=== PATIENT | female | born 1965 | race Caucasian/White ===

== ENCOUNTER 2024-05-19 01:05 | Emergency (ER) | payer OTHER, SELFPAY ==
[2024-05-19] VITALS (9 sets, daily range): BP systolic 109–153; BP diastolic 68–88; PULSE 60–80; RESP 16–18; TEMP 36.3–37.2; O2SAT 93–100; BMI 27.7
--- NOTE | 2024-05-19 | XR_ITS ---
MRI abdomen, without contrast. MRCP Date and time of exam: May 19, 2024 1027 hours INDICATIONS: Epigastric pain beginning today, radiating to the back, gallbladder sonogram May 19, 2024 borderline thickening gallbladder wall, enlarged common bile duct Technique: Multiple axial and coronal images of the abdomen have been obtained with the Siemens 1.5T MRI scanner. Images obtained included T1 weighted transverse images, T2-weighted transverse images, T2-weighted transverse images fat-suppressed, T2 weighted haste fat suppressed transverse images, T1 weighted images, in and out of phase images, T2-weighted coronal images, breath hold, T2 weighted haze coronal images as well as T2 weighted coronal thick slab images, MRCP. Findings: Hepatomegaly 16 cm Gallbladder wall edema and thickened gallbladder wall with multiple gallstones Common bile duct not enlarged, however, coronal image 12 demonstrates 3 mm stone in the distal common bile duct Pancreatic duct is not dilated No pancreatic mass Spleen not enlarged No hydronephrosis IMPRESSION: Acute calculus cholecystitis 3 mm stone in the common bile duct, consider ERCP follow-up
--- NOTE | 2024-05-19 01:33 | XR_ITS ---
Examination: CT abdomen and pelvis without contrast. Coronal 3-D reconstructions. Sagittal 2-D reconstructions. Date and time of exam:May 19, 2024 at 0140 hrs. Comparison June 04, 2023 Indications: Onset left-sided abdominal pain today CTDI: vol (mGy): 9.68 DLP: (mGycm): 480 Technique: Axial images of the abdomen have been obtained, 3 mm slice thickness Intravenous contrast material has not been administered. Low dose protocols were performed. One or more of the following dose reduction techniques were used; automated exposure control, adjustment of the mA and/or KV according to patient size, use of iterative reconstruction technique. Findings: No focal liver lesions Cholelithiasis, gallbladder wall thickening Common bile duct is enlarged at least 11 mm Diffuse edema surrounding the pancreas Mild renal parenchymal scar formation, no hydronephrosis or ureteral calculi Aorta normal size Normal appendix No bowel obstruction No diverticulitis No pelvic mass Urinary bladder intact Moderate osteopenia Impression: Cholelithiasis, suspicious for acute cholecystitis Significant extrahepatic biliary tract dilatation, recommend MRCP follow-up to exclude common bile duct stones and/or stricture Acute pancreatitis
[2024-05-19] MEDS: KETOROLAC INJ 60 MG/2 ML VIAL 30 MG IM (01:47)
[2024-05-19] MEDS: ONDANSETRON ODT 4 MG TABRAP PO (01:47)
[2024-05-19 02:24] LABS: Basophils % (Auto) 0 % (0-2.5); Eosinophils # (Auto) 0.1 Thou/mm3 (0.0-0.5); Eosinophils % (Auto) 1 % (0-10); Hematocrit 42.5 % (36.0-46.0); Immature Granulocytes % (Auto) 0 % (0-0); Immature Granulocytes Auto 0.03 Thou/mm3 (0.00-0.00); Lymphocytes # (Auto) 1.2 Thou/mm3 (1.0-4.8); Lymphocytes % (Auto) 13 % (10-50); Mean Corpuscular HGB Conc 32.9 g/dl (31.0-37.0); Mean Corpuscular Hemoglobin 30.2 pg (25.0-35.0); Mean Corpuscular Volume 92 fL (80-100); Monocytes # (Auto) 0.6 Thou/mm3 (0.0-0.8); Monocytes % (Auto) 7 % (0-12); Neutrophils # (Auto) 7.4 Thou/mm3 (1.8-7.7); Neutrophils % (Auto) 79 % (37-80); Nucleated Red Blood Cell % 0 /100 WBC (0); Platelet Count 338 Thou/mm3 (140-440); RDW Standard Deviation 45.9 fL (36.4-46.3); Red Blood Count 4.63 Miln/mm3 (4.00-5.20); White Blood Count 9.4 Thou/mm3 (3.6-11.0)
[2024-05-19 02:39] LABS: Collection Type, Urine Clean Catch
[2024-05-19 02:46] LABS: Alanine Aminotransferase 194 U/L (10-49); Albumin, Serum 4.6 gm/dL (3.4-4.8); Albumin/Globulin Ratio 1.7 (1.2-2.2); Alkaline Phosphatase 117 U/L (46-116); Anion Gap 9 (7-16); Aspartate Amino Transferase 345 U/L (0-34); BUN/Creatinine Ratio 11 Ratio (12-20); Blood Urea Nitrogen 11 mg/dL (9-23); Calcium 9.9 mg/dL (8.3-10.6); Calcium (Corrected) 9.9 mg/dL (8.5-10.1); Carbon Dioxide 30.5 mMol/L (20.0-31.0); Chloride 101 mMol/L (98-107); Estimated Creatinine Clearance 63.1 mL/min (>60); Globulin 2.7 gm/dL (2.3-3.5); Glucose 179 mg/dL (74-106); Lipase 1337 U/L (12-53); Osmolality,Calculated 282 (275-295); Potassium 4.7 mMol/L (3.4-5.1); Sodium 140 mMol/L (136-145); Total Protein 7.3 gm/dL (5.7-8.2); eGFR > 60 See Note
--- NOTE | 2024-05-19 02:48 | PRELIM_ITS ---
CT abdomen and pelvis without intravenous contrast (axial sections with sagittal and coronal reformat s) May 19, 2024 0140 hours Clinical History: Abdominal pain with nausea, history of ileus. Anupam rison: NoneFindings:The head, uncinate process, body and tail of the pancreas is edematous with mild peripancreatic fat stranding. There is no peripancreatic fluid.There is periportal edema. Distended g allbladder with gallstones with mild wall thickening; possibility of cholecystitis cannot be excluded . There is dilated common bile duct, measuring 1 cm with possible sludge/calculi. The spleen, left ki dney and adrenals are unremarkable on this noncontrast study. There is right renal hypodensity, which is too small to characterize.No evidence of bowel obstruction. A moderate amount of fecal material i s present in the colon. The appendix is within normal limits (axial images 135-147/236). There is no mesenteric or retroperitoneal adenopathy.The urinary bladder is unremarkable. The uterus and adnexa a re unremarkable. There is no free air. Degenerative changes are identified in the spine. The lung bas es are clear. Please note that evaluation of soft tissue/vascular structures and bowel loops is limit ed due to absence of IV and oral contrast. Impression:1. Findings consistent with acute pancreatitis. No peripancreatic fluid collection. 2. Distended gallbladder with gallstones with mild wall thickeni ng; possibility of cholecystitis cannot be excluded. Recommend further evaluation with sonography, if clinically indicated. 3. Dilated common bile duct and intrahepatic bile duct, consistent with distal common bile duct obstruction. Possible sludge/calculi in the common bile duct. 4. Other findings as described above. Suggest clinical correlation and follow up accordingly. Report Electronically Consuelo d By: Kurtis Burr 05/19/2024 2:47:18 AM [EST]
--- NOTE | 2024-05-19 03:19 | XR_ITS ---
Examination: Abdomen sonogram, Limited Date and time of exam: May 19, 2024 0443 hrs. Indications: Onset epigastric pain today Technique: Real-time alonzo scale transabdominal sonographic images of the upper abdomen obtained. Findings: Numerous gallstones Gallbladder wall 0.39 cm no edema Common bile duct 0.6 cm no definite stones Pancreatic head 3.4 cm Liver 13.4 cm smooth contour no focal liver lesions fatty infiltration Normal hepatopedal portal venous flow Patent IVC Impression: Cholelithiasis Borderline thickening gallbladder wall and mild enlargement common bile duct although no common bile duct stones As clinically warranted consider HIDA scan or MRCP follow-up
--- NOTE | 2024-05-19 03:21 | EDNOTE_ITS ---
ED Abdominal Pain RME/HPI General Chief Complaint: Abdominal Pain Stated complaint: ABD PAIN, NAUSEA, CONSTIPATION Time seen by provider: 05/19/24 01:25 Arrival date/time: 05/19/24 01:05 Limitations: no limitations RME / HPI RME / HPI narrative: Dr. Mondragon's Main ED Evaluation: 65-year-old female with below history presenting to the emergency department with epigastric pain that started 1 day ago that was intermittent initially with radiation to her back. The patient states she ate dinner about 530 and it made her pain worse and increased in intensity. Patient is dry heaving for the rest of the evening. No fevers. No vomiting. Patient has no previous history of gallstone or history of pancreatitis. PMH: History of breast cancer status postsurgery. History of gout. October 2023- sepsis secondary to UTI PSX: Breast cancer resection and breast reconstruction Social hx: Alcohol: Socially Tobacco: Denied Illicit drugs: Sometimes she use edibles marijuana Allergies: Sulfa Location: epigastric Severity: mild Severity scale (1-10): 2 Quality: sharp Radiation: back Relieving factors: nothing Exacerbating factors: eating Associated symptoms: nausea Related Data Home Medications ?Medication ?Instructions ?Recorded ?Confirmed alprazolam 0.5 mg tablet (Xanax) 0.5 mg PO BID PRN ANXIETY #0 tabs 09/06/13 10/16/23 venlafaxine 75 mg capsule,extended 225 mg PO QDAY ##0 09/06/13 10/16/23 release 24 hr (Effexor XR) dicyclomine 20 mg tablet 20 mg PO BID PRN Pain (Scale Score 10/16/23 10/16/23 4-6) levothyroxine 25 mcg tablet 25 mcg PO QDAY 10/16/23 10/16/23 Allergies Allergy/AdvReac Type Severity Reaction Status Date / Time SULFA Allergy Unknown Uncoded 10/16/23 04:36 Review of Systems Review of Systems Systems Reviewed: All systems reviewed, normal except as documented Past Medical History Past Medical History CARDIAC: Negative Cardiac Disorders or Congestive Heart Failure RESPIRATORY: Negative Chronic Obstructive Pulmonary Disease (COPD) or Asthma GENITOURINARY: Negative Renal Disease ENDOCRINE: Negative Diabetes Mellitus Type 1 or Diabetes Mellitus Type 2 HEMATOLOGIC: Negative Sickle Cell Disease Family History FAMILY HISTORY: Negative Family Cardiac Disorders Social History SMOKING STATUS: Never smoker ED Exam Narrative Physical exam: Not diaphoretic General Limitations: Present no limitations General appearance: Present alert and in no apparent distress Head Head exam: Present atraumatic Eye Eye exam: Present normal appearance and EOMI; Absent scleral icterus or conjunctival injection ENT ENT exam: Present normal exam, normal oropharynx and mucous membranes moist Neck Neck exam: Present normal inspection, full ROM and trachea midline Chest Chest inspection: Present normal inspection and symmetric chest wall rise Respiratory Respiratory exam: Present normal lung sounds bilaterally Cardiovascular Cardiovascular exam: Present regular rate, normal rhythm and normal heart sounds Abdominal Exam Abdominal exam: Present soft, tenderness and diminished bowel sounds; Absent rebound, rigidity or Thomason's sign Abdominal tenderness: Present epigastrium and mild Extremities Exam Extremities exam: Present normal inspection and full ROM Back Exam Back exam: Present normal inspection and full ROM Neurological Exam Neurological exam: Present alert, oriented X3 and CN II-XII intact (grossly intact); Absent motor sensory deficit Psychiatric Psychiatric exam: Present normal affect and normal mood Skin Skin exam: Present warm, dry, intact and normal color Course Course Course Narrative: 0330:US ordered. Quality Measures none Orders Category Date Time Status CT abdomen pelvis wo con Stat Exams 05/19/24 01:33 Taken US gall bladder Stat Exams 05/19/24 03:19 Ordered CBC Stat Lab 05/19/24 01:52 Completed CMP [Comprehensive Metabolic Panel] Stat Lab 05/19/24 01:52 Completed Lipase Stat Lab 05/19/24 01:52 Completed Urinalysis, C/S if Indicated Stat Lab 05/19/24 02:09 Completed Ketorolac Inj [Toradol Inj] Med 05/19/24 01:33 Discontinued 30 mg IM X1 ONE Ondansetron Odt [Zofran Odt] Med 05/19/24 01:33 Discontinued 4 mg PO X1 ONE Reevaluation(s) Reevaluation #1: Pain 2/10 after Morphine IV. Time: 03:30 Vital Signs Vital signs: Vital Signs Temperature 98.7 F 05/19/24 01:37 Pulse Rate 60 05/19/24 01:37 Respiratory Rate 18 05/19/24 01:37 Blood Pressure 153/88 H 05/19/24 01:37 Pulse Oximetry (%) 100 05/19/24 01:37 Oxygen Delivery Method Room Air 05/19/24 01:37 Abdominal Pain MDM MDM Narrative MDM Narrative:: Differential diagnosis includes gallstone pancreatitis, pancreatitis, cholangitis, worsening of her underlying cancer, sepsis Patient data External records reviewed:: [facility] previous records (Per chart review, patient was admitted here on 10/16/23 for acute hypotension.) Clinical information provided by:: patient Social determinants that could affect healthcare access:: none Patient has the following chronic illnesses:: none How is presenting disease/condition affected by chronic disease/condition?: no chronic disease Evaluation data The following diagnostics were reviewed and interpreted by me:: lab results and radiology exam(s) Lab and/or radiology exams considered but not ordered:: none Interpretation Summary: CBC is normal, Glucose is 179, Total Bilirubin is elevated at 2.0, LFTs are elevated, Lipase is elevated at 1337, according to my interpretation, ----- Telerad Preliminary Report Draft Patient: KAMRYN BIGGS Record#: [id number] Birthdate: 1965 Age/Sex: 59 / F [facility] Att[facility]: Ordering Physician: Date of Service: Procedure(s): Accession Number(s): cc: ~ CT abdomen and pelvis without intravenous contrast (axial sections with sagittal and coronal reformats) May 19, 2024 0140 hours Clinical History: Abdominal pain with nausea, history of ileus. Comparison: None Findings: The head, uncinate process, body and tail of the pancreas is edematous with mild peripancreatic fat stranding. There is no peripancreatic fluid. There is periportal edema. Distended gallbladder with gallstones with mild wall thickening; possibility of cholecystitis cannot be excluded. There is dilated common bile duct, measuring 1 cm with possible sludge/calculi. The spleen, left kidney and adrenals are unremarkable on this noncontrast study. There is right renal hypodensity, which is too small to characterize. No evidence of bowel obstruction. A moderate amount of fecal material is present in the colon. The appendix is within normal limits (axial images 135-147/236). There is no mesenteric or retroperitoneal adenopathy. The urinary bladder is unremarkable. The uterus and adnexa are unremarkable. There is no free air. Degenerative changes are identified in the spine. The lung bases are clear. Please note that evaluation of soft tissue/vascular structures and bowel loops is limited due to absence of IV and oral contrast. Impression: 1. Findings consistent with acute pancreatitis. No peripancreatic fluid collection. 2. Distended gallbladder with gallstones with mild wall thickening; possibility of cholecystitis cannot be excluded. Recommend further evaluation with sonography, if clinically indicated. 3. Dilated common bile duct and intrahepatic bile duct, consistent with distal common bile duct obstruction. Possible sludge/calculi in the common bile duct. 4. Other findings as described above. Suggest clinical correlation and follow up accordingly. Report Electronically Signed By: Kurtis Burr 05/19/2024 2:47:18 AM [EST] Medications / Prescriptions Medications or Prescriptions considered but not ordered:: none Medication administrations:: Medication Administration History Discontinued Medications Ketorolac Tromethamine (Ketorolac Inj 60 Mg/2 Ml Vial) 30 mg IM X1 ONE Stop: 05/19/24 01:34 Last Admin: 05/19/24 01:47 Dose: 30 mg Documented By: EMERALD Ondansetron HCl (Ondansetron Odt 4 Mg Tabrap) 4 mg PO X1 ONE; Protocol Stop: 05/19/24 01:34 Last Admin: 05/19/24 01:47 Dose: 4 mg Documented By: EMERALD see above Consultations Consultation(s) initiated? (list below): No Diagnosis Differential diagnosis abdominal pain: diverticulitis, pancreatitis and other (cholelithiasis, cholecystitis) Most likely diagnosis given after review of the tests above:: see below Admission Indicated Admission indicated?: not indicated Explain why admission is indicated or not indicated:: Patient is pending US gallbladder at sign out. Admission Request Was there a request for admission?: No Disposition Plan Disposition Plan: other (specify) (Signed out to Dr. Banerjee at 0600 pending US gallbladder.) Discharge Plan Plan Disposition Comment: Stable at signout Prescriptions/Referrals Prescriptions/Med Rec: No Action venlafaxine [Effexor XR] 75 MG capsule,extended release 24hr 225 mg PO QDAY Qty: 0 alprazolam [Xanax] 0.5 MG tablet 0.5 mg PO BID PRN (Reason: ANXIETY) Qty: 0 levothyroxine 25 mcg tablet 25 mcg PO QDAY dicyclomine 20 mg tablet 20 mg PO BID PRN (Reason: Pain (Scale Score 4-6)) Patient Comments: take 1 tablet by mouth three times a day if needed abdominal pain Problem List Clinical Impression: Acute gallstone pancreatitis, Common bile duct dilation Patient/Caregiver Discharge Instructions Print Language: Dutch
[2024-05-19 03:27] LABS: Amorphous Crystals,Urine Present (Absent); Bilirubin,Urine Negative (Negative); Blood,Urine Negative (Negative); Budding Yeast,Urine Present; Color,Urine Yellow (Lt Yel-Yel); Culture Indicated,Urine Not Indicated; Glucose, Urine Negative (Negative); Ketones,Urine Negative (Negative); Leukocyte Esterase,Urine Negative (Negative); Nitrite,Urine Negative (Negative); PH,Urine 7.5 (5.0-7.0); Protein,Urine Negative (Neg - Trace); RBC,Urine 5 /hpf (0-3); Squamous Epithelial Cell,Urine < 1 /hpf (0-5); Urobilinogen,Urine Negative mg/dL (0.0-1.0); WBC,Urine 1 /hpf (0-5)
[2024-05-19 03:29] LABS: Clarity,Urine Hazy (Clear/Hazy)
--- NOTE | 2024-05-19 06:11 | PRELIM_ITS ---
Ultrasound Abdomen. May 19, 2024 at 0444 hours Clinical history: Gallstone pancreatitis r/o commo n bile duct stone. Technique: Grayscale and color flow images of the abdomen are provided. Hepatic an d portal veins were also imaged with color flow images. Comparison: Compared with the prior study corby ed May 19, 2024 01:40 AM Findings:The liver is heterogeneous in echogenicity with smooth contour. Hepatopetal flow in main portal vein. No intrahepatic biliary ductal dilatation. Multiple calculi in distended gallbladder. Gallbladder wall thickening. The common bile duct measuring 0.6 cm and appear s to be void of stones. No free fluid is demonstrated on the submitted images. The pancreas is hetero geneous in echogenicity. The inferior vena cava to the extent visualized is within normal limits.Impr ession:Findings suggestive of cholelithiasis with acute cholecystitis. Recommend clinical correlation . No definite evidence of choledocholithiasis. Report Electronically Signed By: Maxi Lowery 05/19/2024 6:10:49 AM [EST]
--- NOTE | 2024-05-19 12:28 | PC.CM ---
Addendum entered by Brandon Cordoba RN 05/19/24 16:57: 1657 called Yolanda at [facility] and informed roller picker time is 1900. Addendum entered by Brandon Cordoba RN 05/19/24 16:48: 1648 sent paperwork to [facility] through [facility]. Called [facility], spoke to Michelle and set up the transport. The roller picker time is 1900. Addendum entered by Brandon Cordoba RN 05/19/24 16:36: 1630 transfer packet is complete with CD inside including all signatures. Transfer packet given to bedside nurse and notified number to call for report is on tracker. Addendum entered by Brandon Cordoba RN 05/19/24 15:55: 1546 received call from Flory at [facility], she wants to speak with Dr. Banerjee. Conference call connected. Flory stated pt is accepted for ED to ED transfer. Accepted by [facility]. Call report at [phone]. Addendum entered by Brandon Cordoba RN 05/19/24 15:00: 1500 clinicals sent to [facility]. Addendum entered by Brandon Cordoba RN 05/19/24 13:28: 1256 received call from [facility], spoke to Demetria. She stated transfer is denied due to capacity. Addendum entered by Brandon Cordoba RN 05/19/24 12:49: 1249 called [facility] to initiate the transfer. Left VM. Original Note: 1228 clinicals sent to [facility]. [address] Banerjee, pt needs to be transferred for stones in CBD needs ERCP/GI services.
--- NOTE | 2024-05-19 12:58 | EDNOTE_ITS ---
Emergency Room Addendum <Columba Hollis - Last Filed: 05/19/24 14:10> Addendum Narrative: 0600: Care assumed from Dr. Mondragon, the previous shift emergency physician. Past medical, surgical, social and family history reviewed. Vitals and home medications reviewed. I will assume the care of the patient at this time, pending US gallbladder. Please refer to the emergency department record for history and examination from initial visit.? Nursing notes reviewed by me. Vital signs reviewed by me. [place] medical records reviewed by me. 1217: Transfer nurse made aware of MRCP results and need to transfer for ERCP. RADIOLOGY Ordering Physician: Gina Mondragon MD Date of Service: 05/19/24 Procedure(s): US gall bladder Accession Number(s): [id number] cc: Kurt Givens MD; Gina Mondragon MD; Rachael Saunders MD~ Examination: Abdomen sonogram, Limited Date and time of exam: May 19, 2024 0443 hrs. Indications: Onset epigastric pain today Technique: Real-time alonzo scale transabdominal sonographic images of the upper abdomen obtained. Findings: Numerous gallstones Gallbladder wall 0.39 cm no edema Common bile duct 0.6 cm no definite stones Pancreatic head 3.4 cm Liver 13.4 cm smooth contour no focal liver lesions fatty infiltration Normal hepatopedal portal venous flow Patent IVC Impression: Cholelithiasis Borderline thickening gallbladder wall and mild enlargement common bile duct although no common bile duct stones As clinically warranted consider HIDA scan or MRCP follow-up Dictated By: Kurt Givens MD Signed By: <Electronically signed by Kurt Givens MD in OV>05/19/24 0719 Ordering Physician: Gina Mondragon MD Date of Service: 05/19/24 Procedure(s): MR MRCP Accession Number(s): [id number] cc: Kurt Givens MD; Gina Mondragon MD; Rachael Saunders MD~ MRI abdomen, without contrast. MRCP Date and time of exam: May 19, 2024 1027 hours INDICATIONS: Epigastric pain beginning today, radiating to the back, gallbladder sonogram May 19, 2024 borderline thickening gallbladder wall, enlarged common bile duct Technique: Multiple axial and coronal images of the abdomen have been obtained with the Siemens 1.5T MRI scanner. Images obtained included T1 weighted transverse images, T2-weighted transverse images, T2-weighted transverse images fat-suppressed, T2 weighted haste fat suppressed transverse images, T1 weighted images, in and out of phase images, T2-weighted coronal images, breath hold, T2 weighted haze coronal images as well as T2 weighted coronal thick slab images, MRCP. Findings: Hepatomegaly 16 cm Gallbladder wall edema and thickened gallbladder wall with multiple gallstones Common bile duct not enlarged, however, coronal image 12 demonstrates 3 mm stone in the distal common bile duct Pancreatic duct is not dilated No pancreatic mass Spleen not enlarged No hydronephrosis IMPRESSION: Acute calculus cholecystitis 3 mm stone in the common bile duct, consider ERCP follow-up Dictated By: Kurt Givens MD Signed By: <Electronically signed by Kurt Givens MD in OV>05/19/24 1127 <Beatrice Madison - Last Filed: 05/19/24 21:57> Addendum Narrative: 0600: Care assumed from Dr. Mondragon, the previous shift emergency physician. Past medical, surgical, social and family history reviewed. Vitals and home medications reviewed. I will assume the care of the patient at this time, pending US gallbladder. Please refer to the emergency department record for history and examination from initial visit.? Nursing notes reviewed by me. Vital signs reviewed by me. [facility] medical records reviewed by me. 1217: Transfer nurse made aware of MRCP results and need to transfer for ERCP. 1700: Patient accepted to [facility], ED to ED transfer. Accepted by And[facility]. Diagnoses: acute gallstone pancreatitis, common bile duct dilation RADIOLOGY Ordering Physician: Gina Mondragon MD Date of Service: 05/19/24 Procedure(s): US gall bladder Accession Number(s): [id number] cc: Kurt Givens MD; Gina Mondragon MD; Rachael Saunders MD~ Examination: Abdomen sonogram, Limited Date and time of exam: May 19, 2024 0443 hrs. Indications: Onset epigastric pain today Technique: Real-time alonzo scale transabdominal sonographic images of the upper abdomen obtained. Findings: Numerous gallstones Gallbladder wall 0.39 cm no edema Common bile duct 0.6 cm no definite stones Pancreatic head 3.4 cm Liver 13.4 cm smooth contour no focal liver lesions fatty infiltration Normal hepatopedal portal venous flow Patent IVC Impression: Cholelithiasis Borderline thickening gallbladder wall and mild enlargement common bile duct although no common bile duct stones As clinically warranted consider HIDA scan or MRCP follow-up Dictated By: Kurt Givens MD Signed By: <Electronically signed by Kurt Givens MD in OV>05/19/24 0719 Ordering Physician: Gina Mondragon MD Date of Service: 05/19/24 Procedure(s): MR MRCP Accession Number(s): [id number] cc: Kurt Givens MD; Gina Mondragon MD; Rachael Saunders MD~ MRI abdomen, without contrast. MRCP Date and time of exam: May 19, 2024 1027 hours INDICATIONS: Epigastric pain beginning today, radiating to the back, gallbladder sonogram May 19, 2024 borderline thickening gallbladder wall, enlarged common bile duct Technique: Multiple axial and coronal images of the abdomen have been obtained with the Siemens 1.5T MRI scanner. Images obtained included T1 weighted transverse images, T2-weighted transverse images, T2-weighted transverse images fat-suppressed, T2 weighted haste fat suppressed transverse images, T1 weighted images, in and out of phase images, T2-weighted coronal images, breath hold, T2 weighted haze coronal images as well as T2 weighted coronal thick slab images, MRCP. Findings: Hepatomegaly 16 cm Gallbladder wall edema and thickened gallbladder wall with multiple gallstones Common bile duct not enlarged, however, coronal image 12 demonstrates 3 mm stone in the distal common bile duct Pancreatic duct is not dilated No pancreatic mass Spleen not enlarged No hydronephrosis
--- NOTE | 2024-05-19 18:27 | PC.NURSE ---
PT HAVING LITTLE TO NO PAIN- AWAITING TRANSPORT TO [facility]. NO COMPLAINTS AT THIS TIME.
== END 2024-05-19 19:15 | disposition short-term general hospital (02) ==
LOC: SERX 04:35
PROVIDERS: Emergency Provider Emergency Medicine; PCP Family Medicine
DX: K85.10 Biliary acute pancreatitis without necrosis or infection (principal); K80.70 Calculus of gallbladder and bile duct without cholecystitis without obstruction; Z75.1 Person awaiting admission to adequate facility elsewhere
CPT/HCPCS: 36415; 74176; 76705; 80053; 81001; 83690; 85025; 96372; 99284; J1885; Q0162; S8037; 74181

== ENCOUNTER → 2024-05-25 | Outpatient (CLI) | payer OTHER, SELFPAY ==
[2024-05-25 17:37] LABS: Basophils % (Auto) 1 % (0-2.5); Eosinophils # (Auto) 0.3 Thou/mm3 (0.0-0.5); Eosinophils % (Auto) 5 % (0-10); Hematocrit 44.1 % (36.0-46.0); Hemoglobin 14.1 g/dL (12.0-16.0); Immature Granulocytes % (Auto) 0 % (0-0); Immature Granulocytes Auto 0.01 Thou/mm3 (0.00-0.00); Lymphocytes # (Auto) 2.2 Thou/mm3 (1.0-4.8); Lymphocytes % (Auto) 36 % (10-50); Mean Corpuscular Hemoglobin 30.2 pg (25.0-35.0); Mean Corpuscular Volume 94 fL (80-100); Monocytes # (Auto) 0.5 Thou/mm3 (0.0-0.8); Monocytes % (Auto) 8 % (0-12); Neutrophils # (Auto) 3.1 Thou/mm3 (1.8-7.7); Neutrophils % (Auto) 51 % (37-80); Nucleated Red Blood Cell % 0 /100 WBC (0); Platelet Count 426 Thou/mm3 (140-440); RDW Standard Deviation 46.1 fL (36.4-46.3); Red Blood Count 4.67 Miln/mm3 (4.00-5.20); White Blood Count 6.1 Thou/mm3 (3.6-11.0)
[2024-05-25 17:53] LABS: Alanine Aminotransferase 58 U/L (10-49); Albumin, Serum 4.5 gm/dL (3.4-4.8); Anion Gap 7 (7-16); Aspartate Amino Transferase 17 U/L (0-34); BUN/Creatinine Ratio 12 Ratio (12-20); Bilirubin,Total 0.5 mg/dL (0.3-1.2); Blood Urea Nitrogen 12 mg/dL (9-23); Calcium 9.9 mg/dL (8.3-10.6); Carbon Dioxide 32.7 mMol/L (20.0-31.0); Chloride 103 mMol/L (98-107); Glucose 101 mg/dL (74-106); Osmolality,Calculated 284 (275-295); Sodium 143 mMol/L (136-145); Total Protein 7.3 gm/dL (5.7-8.2); eGFR > 60 See Note
[2024-05-25 17:54] LABS: Albumin/Globulin Ratio 1.6 (1.2-2.2); Alkaline Phosphatase 108 U/L (46-116); Calcium (Corrected) 9.9 mg/dL (8.5-10.1); Globulin 2.8 gm/dL (2.3-3.5); Lipase 96 U/L (12-53)
== END | disposition home or self-care (01) ==
LOC: COPL 16:48
PROVIDERS: PCP Family Medicine; Referring Provider Family Medicine; Visit Provider Family Medicine
DX: K85.80 Other acute pancreatitis without necrosis or infection (principal); K81.0 Acute cholecystitis; R11.0 Nausea
CPT/HCPCS: 36415; 80053; 83690; 85025

== ENCOUNTER 2024-06-15 11:05 | Day surgery (SDC) | payer OTHER, SELFPAY ==
--- NOTE | 2024-06-14 07:00 | EKG_ITS ---
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
[2024-06-14 08:51] VITALS: BMI 27.4
[2024-06-14 10:53] LABS: Basophils # (Auto) 0.1 Thou/mm3 (0.0-0.2); Basophils % (Auto) 1 % (0-2.5); Eosinophils # (Auto) 0.2 Thou/mm3 (0.0-0.5); Eosinophils % (Auto) 3 % (0-10); Hematocrit 38.7 % (36.0-46.0); Hemoglobin 12.5 g/dL (12.0-16.0); Immature Granulocytes % (Auto) 0 % (0-0); Immature Granulocytes Auto 0.01 Thou/mm3 (0.00-0.00); Lymphocytes # (Auto) 1.9 Thou/mm3 (1.0-4.8); Lymphocytes % (Auto) 32 % (10-50); Mean Corpuscular HGB Conc 32.3 g/dl (31.0-37.0); Mean Corpuscular Hemoglobin 30.7 pg (25.0-35.0); Mean Corpuscular Volume 95 fL (80-100); Monocytes # (Auto) 0.6 Thou/mm3 (0.0-0.8); Monocytes % (Auto) 9 % (0-12); Neutrophils # (Auto) 3.3 Thou/mm3 (1.8-7.7); Neutrophils % (Auto) 55 % (37-80); Nucleated Red Blood Cell % 0 /100 WBC (0); Platelet Count 360 Thou/mm3 (140-440); RDW Standard Deviation 46.8 fL (36.4-46.3); Red Blood Count 4.07 Miln/mm3 (4.00-5.20); White Blood Count 6.1 Thou/mm3 (3.6-11.0)
[2024-06-14 11:02] LABS: Alanine Aminotransferase 15 U/L (10-49); Albumin, Serum 4.4 gm/dL (3.4-4.8); Albumin/Globulin Ratio 1.7 (1.2-2.2); Alkaline Phosphatase 72 U/L (46-116); Anion Gap 7 (7-16); Aspartate Amino Transferase 19 U/L (0-34); BUN/Creatinine Ratio 16 Ratio (12-20); Bilirubin,Total 0.5 mg/dL (0.3-1.2); Blood Urea Nitrogen 16 mg/dL (9-23); Calcium 9.7 mg/dL (8.3-10.6); Calcium (Corrected) 9.7 mg/dL (8.5-10.1); Carbon Dioxide 30.3 mMol/L (20.0-31.0); Chloride 110 mMol/L (98-107); Estimated Creatinine Clearance 62.7 mL/min (>60); Globulin 2.6 gm/dL (2.3-3.5); Glucose 105 mg/dL (74-106); Osmolality,Calculated 293 (275-295); Sodium 147 mMol/L (136-145); eGFR > 60 See Note
[2024-06-15] VITALS (12 sets, daily range): BP systolic 122–179; BP diastolic 81–109; PULSE 64–71; RESP 12–20; TEMP 36.4–36.5; O2SAT 95–99; BMI 26.9
[2024-06-15] MEDS: RINGERS LACTATED 1000 ML 1,000 ML 20 ML IV (11:52)
--- NOTE | 2024-06-15 13:07 | ESOP_ITS ---
Date of Procedure 06/15/24 Pre Op Diagnosis Symptomatic cholelithiasis Post Op Diagnosis Cholelithiasis with cholecystitis Procedure Laparoscopic cholecystectomy Findings Moderately distended gallbladder with gallstones and chronic cholecystitis Procedure Description Patient was brought into the operating room in supine position. After adm inistration of general endotracheal anesthesia abdomen was prepped and draped in standard surgical manner. A Veress needle was inserted through the umbilicus and pneumoperitoneum was obtained up to 15 mmHg. The Veress needle was then removed, a 5 mm infraumbilical incision was made and the 5mm trocar was inserted. Laparoscopic camera was placed. Under direct visualization a laparoscopic camera a 10 mm trocar was placed in subxiphoid and two 5 mm trocars placed in right upper quadrant. The gallbladder was identified and was noted to be moderately distended with gallstones and chronic cholecystitis. It was retracted cephalad and laterally. Dissection started near the infundibulum of gallbladder where cystic duct and gallbladder junction clearly identified. The cystic duct was circumferentially dissected off the peritoneum and surrounding inflammatory tissue. The critical view of safety was clearly demonstrated. Cystic duct was then divided between 2 endoclips proximally and one distally. The cystic artery was similarly dissected and divided. The gallbladder was then from the liver bed using electrocautery. The gallbladder was then placed inside an Endo Catch and removed from the abdomen utilizing subxiphoid trocar site. The area was copiously and thoroughly washed and irrigated, all the fluid was suctioned and the suction fluid returned clear. Hemostasis achieved using electrocautery, also topical hemostatic agent using snow Surgicel placed at the gallbladder fossa to further assure hemostasis. Endoclips noted be in place and intact without any bleeding or any leakage. Hemostasis was adequate and satisfactory. The subxiphoid trocar sites fascial defect was closed with 0 Vicryl. Instruments and trocars removed, pneumoperitoneum was evacuated and the incisions closed with 4-0 Monocryl in subcuticular fashion. Instrument needle and sponge counts were all reported to be correct X2. Patient tolerated the procedure well, was extubated, breathing spontaneously and without difficulty and was transferred to postanesthesia care in stable condition. Anesthesia GETA and local Pathology / specimen Other (Gallbladder and contents) Estimated Blood Loss 25 Condition Stable Disposition PACU Surgeon Alpa Valladares MD Surgical Staff Operation Date: 06/15/24 14:45 Case Staff Anesthesiologist: Sourav Lloyd RN First Assistant: Ameena Cho
--- NOTE | 2024-06-15 13:10 | SUR.PHASEI ---
pt arrived via gurney with oral airway present, breathing unlabored, dressing to abdomen clean, dry, and intact, report from Carlos DOWNEY and Dr Lloyd
[2024-06-15] MEDS: hydrALAZINE INJ 20 MG/ML VIAL 10 MG IV (14:07)
--- NOTE | 2024-06-15 14:40 | SUR.PHASEII ---
pt awake, alert, able to follow commands, breathing unlabored, dressing to abdomen clean, dry, and intact, discharge instructions given with spouse present, pt discharged via wheelchair with all belongings and copies of discharge paperwork.
== END 2024-06-15 14:40 | disposition home or self-care (01) ==
PROVIDERS: PCP Family Medicine; Referring Provider Surgery; Visit Provider Surgery
PROC: 0FT44ZZ Resection of Gallbladder, Percutaneous Endoscopic Approach (ICD-10-PCS; CPT 47562; principal; 2024-06-15 14:30)
DX: K80.10 Calculus of gallbladder with chronic cholecystitis without obstruction (principal); Z01.810 Encounter for preprocedural cardiovascular examination
CPT/HCPCS: 47562; 36415; 80053; 85025; 93005; A4217; A4649; J0360; J0694; J1100; J2250; J2405; J2704; J3010; J3490; J7120

== ENCOUNTER → 2024-07-01 | Outpatient (CLI) | payer OTHER, SELFPAY ==
[2024-07-01 17:41] LABS: Glucose Estimated Average 111 mg/dL (80-131); Hemoglobin A1C 5.5 % Hgb (4.8-6.0)
== END | disposition home or self-care (01) ==
LOC: COPL 16:41
PROVIDERS: PCP Family Medicine; Referring Provider Family Medicine; Visit Provider Family Medicine
DX: E11.65 Type 2 diabetes mellitus with hyperglycemia (principal)
CPT/HCPCS: 36415; 83036

== ENCOUNTER → 2024-10-01 | Outpatient (CLI) | payer OTHER, SELFPAY ==
[2024-10-01 20:17] LABS: Glucose Estimated Average 100 mg/dL (80-131); Hemoglobin A1C 5.1 % Hgb (4.8-6.0)
== END | disposition home or self-care (01) ==
LOC: COPL 15:40
PROVIDERS: PCP Family Medicine; Referring Provider Family Medicine; Visit Provider Family Medicine
DX: E11.65 Type 2 diabetes mellitus with hyperglycemia (principal); Z12.31 Encounter for screening mammogram for malignant neoplasm of breast
CPT/HCPCS: 36415; 83036

== ENCOUNTER → 2025-02-16 | Outpatient (CLI) | payer OTHER, SELFPAY ==
--- NOTE | 2025-02-16 09:15 | XR_ITS ---
Examination: Screening digital mammography, unilateral left Computer aided detection 3-D breast Tomosynthesis, unilateral Date and time of exam: 02/16/2025, 9:09 a.m. Comparisons: June 2017 through November 2021 Indications: Screening Technique: Nonmagnified MLO, CC views of the left breast to been obtained, reconstructed from 3-D Tomosynthesis images. R2 computer aided detection program utilized for evaluation of suspicious masses and/or abnormal calcifications. 3-D Tomosynthesis images obtained. Findings: There are scattered areas of fibroglandular density. No evidence of abnormal masses or suspicious calcifications. Impression: BI-RADS category 1: Negative findings (within normal) Recommend 1 year follow-up mammogram
== END | disposition home or self-care (01) ==
LOC: CDIM 09:02
PROVIDERS: Referring Provider Family Medicine; Visit Provider Family Medicine
DX: Z12.31 Encounter for screening mammogram for malignant neoplasm of breast (principal); R92.313 Mammographic fatty tissue density, bilateral breasts
CPT/HCPCS: 77063; 77067

== ENCOUNTER → 2025-02-18 | Outpatient (CLI) | payer OTHER, SELFPAY ==
[2025-02-18 16:38] LABS: Glucose Estimated Average 114 mg/dL (80-131); Hemoglobin A1C 5.6 % Hgb (4.8-6.0)
[2025-02-18 17:18] LABS: Cardiac Risk Estimate 2.1 RATIO (3.7-5.6); Cholesterol 150 mg/dL (132-200); Free T4 (Free Thyroxine) 1.06 ng/dL (0.89-1.76); HDL Cholesterol 70 mg/dL (40-60); LDL Cholesterol,Calculated 69 mg/dL (0-130); Thyroid Stimulating Hormone 3.00 uIU/mL (0.55-4.78); Triglycerides 53 mg/dL (30-150)
== END | disposition home or self-care (01) ==
LOC: COPL 15:45
PROVIDERS: PCP Family Medicine; Referring Provider Internal Medicine Cardiovascular Disease; Visit Provider Internal Medicine Cardiovascular Disease
DX: R73.03 Prediabetes (principal); E78.2 Mixed hyperlipidemia; E03.9 Hypothyroidism, unspecified
CPT/HCPCS: 36415; 80061; 83036; 84439; 84443